=== PATIENT | male | born 1975 | race African-American/Black ===

== ENCOUNTER 2017-02-28 18:34 | Emergency (ER) | payer OTHER ==
[2017-02-28 17:09] LABS: BASOPHILS 0.3 %; BASOPHILS ABSOLUTE 0.04 10/3/uL (0.0-0.16); EOSINOPHILS 0.6 %; EOSINOPHILS ABSOLUTE 0.07 10/3/uL (0.0-0.53); ER CBC TAT 0 Hrs 03 Mins; HEMATOCRIT 41.6 % (40.0-51.0); HEMOGLOBIN 15.1 g/dL (13.6-17.8); IMMATURE GRANULOCYTES 0.3 %; IMMATURE GRANULOCYTES ABSOLUTE 0.04 10/3/uL (0.0-0.11); LYMPHOCYTES 22.5 %; LYMPHOCYTES ABSOLUTE 2.82 10/3/uL (0.67-4.30); MEAN CORPUS HGB CONC 36.3 g/dL (32.0-36.0); MEAN CORPUSCULAR HEMOGLOB 33.9 pg (26.0-34.0); MEAN CORPUSCULAR VOLUME 93.3 fL (80-100); MEAN PLATELET VOLUME 8.6 fL (9.2-13.0); MONOCYTES 6.5 %; MONOCYTES ABSOLUTE 0.81 10/3/uL (0.21-1.20); NEUTROPHILS 69.8 %; NEUTROPHILS ABSOLUTE 8.75 10/3/uL (2.02-8.40); PLATELET COUNT 226 10/3/uL (150-400); RBC DISTRIBUTION WIDTH 13.9 % (12.0-16.0); RED CELL COUNT 4.46 10/6/uL (4.7-6.1); WHITE BLOOD CELLS 12.5 10/3/uL (4.5-10.5)
[2017-02-28 17:10] LABS: MANUAL DIFF NO %
[2017-02-28 17:16] LABS: PROTIME (NOT ORD) 12.7 SEC (12.0-14.5)
[2017-02-28 17:26] LABS: BUN (BLOOD UREA NITROGEN) 6 MG/DL (6-23); CALCIUM, SERUM 8.5 MG/DL (8.5-10.4); CHEST PAIN PROFILE TAT 0 Hrs 20 Mins; CHLORIDE, SERUM 102 MMOL/L (96-112); CO2 (CARBON DIOXIDE) 21 MMOL/L (24-34); CREATININE 0.88 MG/DL (0.70-1.30); GFR AFRICAN AMERICAN 122 ML/MIN (>=60); GFR NON AFRICAN AMERICAN 105 ML/MIN (>=60); GLUCOSE, SERUM 74 MG/DL (60-99); POTASSIUM, SERUM 3.6 MMOL/L (3.5-5.3); SODIUM, SERUM 138 MMOL/L (135-148); TROPONIN I <0.02 NG/ML (<0.05)
[~2017-02-28 18:34] MED LIST: ADVIL PO; ALEVE220 MG PO
[2017-02-28 18:41] LABS: AMPHETAMINES (NOT ORD) NEG (NEG); BARBITURATES (NOT ORDERED NEG (NEG); BENZODIAZEPINES (NOT ORD) NEG (NEG); CANNABINOIDS (THC) POS (NEG); COCAINE (NOT ORDERED) NEG (NEG); OPIATES NEG (NEG); PHENCYCLIDINE(PCP) NEG (NEG); TRICYCLICS NEG (NEG)
[2017-02-28 18:53] LABS: ALCOHOL 237 MG/DL (0); SALICYLATE 4.2 MG/DL (-)
[2017-02-28 18:54] LABS: ACETAMINOPHEN LEVEL (TYLENOL) < 2.0 MCG/ML (10.0-20.0)
[2017-02-28] MEDS ORDERED: IBU-200200 MG PO (19:07)
[2017-05-23] MEDS ORDERED: HABIT21 TOP (10:08)
[2017-05-23] MEDS ORDERED: LIPITOR80 MG PO (10:08)
[2017-05-23] MEDS ORDERED: ASABAYER PO (10:08)
[2017-05-23] MEDS ORDERED: MULTIVITAMI1 PO (10:10)
== END 2017-02-28 22:30 | disposition home or self-care (01) ==
LOC: ER 18:34
PROVIDERS: Emergency Medicine
DX: R20.2 Paresthesia of skin (principal); M79.601 Pain in right arm; Z91.018 Allergy to other foods
CPT/HCPCS: 71010; 71275; 80048; 80305; 80307; 83735; 84484; 85025; 85610; 85730; 93005; 99285; Q9967